=== PATIENT | female | born 1995 | race Caucasian/White ===

== ENCOUNTER 2025-01-01 22:00 | Emergency (ER) | payer BC, MEDICAID ==
[2025-01-01] MEDS ORDERED: Sodium Chloride 0.9% 10 ML Syringe FLUSH PRN (22:15)
[2025-01-01] MEDS: Ketorolac 30 MG/ML SDV IVPUSH ONE (22:26)
[2025-01-01] MEDS: diphenhydrAMINE 50 MG/ML SDV IVPUSH ONE (22:26)
[2025-01-01] MEDS: Ondansetron 4 MG/2 ML SDV IVPUSH ONE (23:09)
== END 2025-01-01 23:17 | disposition home or self-care (01) ==
LOC: KA.ED 22:00
DX: R51.9 Headache, unspecified (principal); H53.143 Visual discomfort, bilateral; R11.2 Nausea with vomiting, unspecified; Z88.1 Allergy status to other antibiotic agents; Z79.899 Other long term (current) drug therapy
CPT/HCPCS: 96361; 96374; 96375; 99283; 99283-25; J1200; J1885; J2405; J7030